=== PATIENT | male | born 1970 | race Hispanic/Latino ===

== ENCOUNTER 2021-11-30 08:01 | Emergency (ER) | payer OTHER ==
[~2021-11-30] VITALS: Ht 182.9 cm; Wt 113.4 kg
[2021-11-30 08:02] VITALS: BP 128/77
[2021-11-30] MEDS ORDERED: NAPR375T6 PO (09:39)
== END 2021-11-30 10:04 | disposition home or self-care (01) ==
LOC: EDH 08:01
DX: S86.912A Strain of unspecified muscle(s) and tendon(s) at lower leg level, left leg, initial encounter (principal); M25.562 Pain in left knee; Z88.1 Allergy status to other antibiotic agents; X58.XXXA Exposure to other specified factors, initial encounter; Y93.89 Activity, other specified; Y92.89 Other specified places as the place of occurrence of the external cause; Y99.8 Other external cause status
CPT/HCPCS: 29505; 73562

== ENCOUNTER 2023-10-06 13:48 | Emergency (ER) | payer OTHER ==
[~2023-10-06] VITALS: Ht 182.9 cm; Wt 127.0 kg
[~2023-10-06 13:48] MED LIST: NAPR375T6 PO
[2023-10-06] MEDS: KETOROLAC 30MG VIAL (30MG/ML) IM ONE (14:35)
[2023-10-06] MEDS ORDERED: KETO10TA2 PO (15:48)
[2023-10-06 15:51] VITALS: BP 141/80; PULSE 87; RESP 20; O2SAT 98
== END 2023-10-06 15:51 | disposition home or self-care (01) ==
LOC: EDH 13:48
DX: S20.211A Contusion of right front wall of thorax, initial encounter (principal); Z88.1 Allergy status to other antibiotic agents; Z79.899 Other long term (current) drug therapy; W01.0XXA Fall on same level from slipping, tripping and stumbling without subsequent striking against object, initial encounter; Y93.89 Activity, other specified; Y92.89 Other specified places as the place of occurrence of the external cause; Y99.8 Other external cause status
CPT/HCPCS: 99284; 71101; 96372; J1885